=== PATIENT | female | born 1985 | race Caucasian/White ===

== ENCOUNTER 2024-03-02 07:06 | Emergency (ER) | payer OTHER, SELFPAY ==
[2024-03-02 07:08] VITALS: BP 116/76
--- NOTE | 2024-03-02 08:55 | ED.GENMED ---
History of Present Illness
General
Chief Complaint: Abdominal Symptoms
Time Seen by Provider: 03/02/24 08:37
History of Present Illness
History of Present Illness:
Patient is a 38-year-old female with no reported chronic problems here today for evaluation of approximately 1 month of a cough. Cough has persisted. Initially the cough was noted to be nonproductive but more recently has become productive. She
also initially noted fevers which have since resolved. Symptoms are improving but she still endorses a mild lingering cough. Yesterday while coughing the patient developed sudden onset of right-sided upper lateral chest wall pain which has since
been persistent. Pain is worse with coughing and moving/deep inspiration. She also endorses right upper back pain. No difficulty breathing. No fevers. She has been taking ibuprofen and Tylenol.
The patient also endorses intermittent episodes of abdominal pain associated with nausea/vomiting that come and go over the past couple of months. Patient reports a history of gallstones and has had approximately 8 episodes in total. While in the
waiting room today patient noted upper abdominal pain which was consistent with her prior gallbladder attacks associated with vomiting x 1. Abdominal pain and vomiting have since resolved and patient denies having abdominal pain currently. No
other acute complaints otherwise.
Review of Systems
Review of Systems
All Other Systems: ROS reviewed and negative except as documented in HPI and ROS
Phy Exam
Physical Exam
Physical Exam:
GENERAL: Alert , in no apparent distress
EYE: pupils equal and reactive
NECK: Supple
ENT: o/p clr, mmm.
CARDIAC: Regular rate and rhythm.
CHEST WALL: There is mild tenderness to palpation along the right upper lateral chest wall, no deformities or step-offs appreciated, no rashes, no erythema, no ecchymosis, no swelling, there is symmetric chest wall expansion
LUNGS: Clear breath sounds bilaterally, no acute respiratory distress, no wheezes/rales/rhonchi
ABDOMEN: Soft, mildly tender along the epigastrium and RUQ, no r/g, no cvat
NEUROLOGICAL: Alert and oriented, no focal neuro deficits
SKIN: Warm and dry, skin intact.
MUSCULOSKELETAL: No edema, well perfused.
PSYCH: Normal and appropriate interaction.
Course
Orders/Labs/Results
Orders:
Orders
03/02/24 08:53
Ibuprofen [Motrin] 600 mg PO NOW STA
CR Chest - 2 Views Urgent
Comment:
Reason For Exam: right sided chest pain from coughing
03/02/24 08:54
Lidocaine [Lidocaine 4% Patch] 1 patch TOPICAL ONCE ONE
Apply Lidocaine patch(s) to:: right chest wall
Vital Signs
Initial and Last Documented VS:
Initial Vital Signs
Temp Pulse Resp BP Pulse Ox
98 F 67 16 116/76 100
03/02/24 07:08 03/02/24 07:08 03/02/24 07:08 03/02/24 07:08 03/02/24 07:08
Last Documented Vital Signs
Temp Pulse Resp BP Pulse Ox
98.0 F 73 20 110/92 100
03/02/24 10:06 03/02/24 10:06 03/02/24 10:06 03/02/24 10:06 03/02/24 10:06
MDM/Problems Addressed
Differential Diagnosis Includes:
Patient is a 38-year-old female with no reported chronic problems here today for evaluation of approximately 1 month of a cough associated with right sided chest wall pain. The patient also endorses intermittent episodes of abdominal pain associated
with nausea/vomiting that come and go over the past couple of months.
Overall, patient appears very well. Vital signs grossly within normal limits. Physical examination described above. Regarding the patient's cough, I suspect the patient likely has bronchitis which is typically viral in nature. The patient has
also had no fevers recently and symptoms are improving. Do not suspect a bacterial etiology. Her right-sided chest wall pain is likely secondary to coughing and I suspect she may have pulled a muscle. Pain is reproducible on examination. Patient
has no evidence of swelling or ecchymosis. No deformities. Lungs are clear throughout. Do not suspect pneumothorax. We will obtain a chest x-ray to evaluate for this or other acute cardiopulmonary process. I did discuss performing an EKG and
blood work including troponin but patient declined.
Regarding the patient's abdominal pain, she has no pain currently and is not nauseous or having any vomiting. Her abdomen is soft although she is minimally tender along the right upper quadrant and epigastrium. No rebound or guarding. I did
discuss performing blood work in addition to an ultrasound but patient declined. Discussed general surgery evaluation but patient declined this as well. She is currently traveling from [place] and states she will follow-up with her doctor there.
03/02/2024 10:26: X-ray negative. Patient made aware of findings. She reports improvement in symptoms overall. Symptoms/findings appear muscular in nature. Recommend supportive measures, rest, avoidance of heavy lifting, and Tylenol/ibuprofen.
We discussed general surgery follow-up for her history of gallstones. All questions answered. Stable for discharge.
*Critical Care Note
Total Time (30-74mins, 75-104mins- exclusive of procedures): Not Applicable
ED Attending Note
-
Portions of this chart may have been created with voice recognition software.� Occasional wrong word or��sound alike� substitutions may have occurred due to the inherent limitations of voice recognition software.
Discharge Plan
Departure
Patient Disposition: Home (Routine Discharge)
Date of Disposition: 03/02/24
Time of Disposition: 10:21
Patient with high blood pressure during this ER visit?: No
Condition: Good
Covid-19: Not Applicable
Discharge Problem:
Right-sided chest wall pain, Cough, History of gallstones
Instructions: Cough, Adult ED
Referrals:
UNKNOWN - PT DOES,NOT KNOW [Family Provider] -
Activity Restrictions/Additional Instructions:
You were seen today for evaluation of chest wall pain in the setting of a cough.
We obtained a chest x-ray which is negative.
Your symptoms are likely secondary to a viral respiratory infection, likely bronchitis given duration. This is typically self-limiting and will resolve on its own. Rest. Drink plenty of fluids. Hot tea with honey may help with cough.
In reference to your abdominal discomfort/gallstone history, we recommend following up with a general surgeon.
Return for any new, worsening, or concerning symptoms.
Interventions
Interventions:
*Risk Screen - Suicide Last Done: 03/02/24 07:12
*General Assessment Last Done: 03/02/24 10:21
*Neglect/Abuse Screening Last Done: 03/02/24 07:12
*ED COVID-19 Vaccine History Last Done: 03/02/24 10:21
*Nursing Disposition Last Done: 03/02/24 10:26
KI-Qmjdsd-Wmtmirmwqg Assessment Last Done: 03/02/24 10:20
Discharge Date and Time
Print Language: BAHAMIAN
[2024-03-02] MEDS: LIDOCAINE 4% PATCH 1 PATCH TOPICAL (09:08)
[2024-03-02] MEDS: MOTRIN 600 MG PO (09:08)
[2024-03-02 10:06] VITALS: BP 110/92
== END 2024-03-02 10:27 | disposition home or self-care (01) ==
LOC: EMR 07:06
PROVIDERS: EMERGENCY PHYSICIAN Emergency Medicine
DX: R07.89 Other chest pain (principal); R05.9 Cough, unspecified; K80.20 Calculus of gallbladder without cholecystitis without obstruction
CPT/HCPCS: 99283; 71046